=== PATIENT | male | born 1995 | race Caucasian/White ===

== ENCOUNTER → 2021-12-16 | Outpatient (CLI) | payer OTHER | LOC: M PLAIMG 10:32 | PROVIDERS: ATTEND Physician Assistant | DX: Z18.10 Retained metal fragments, unspecified (principal) ==

== ENCOUNTER → 2021-12-16 | Outpatient (CLI) | payer OTHER | LOC: M PLAIMG 10:26 | PROVIDERS: ATTEND Physician Assistant | DX: M25.551 Pain in right hip (principal); M25.561 Pain in right knee ==

== ENCOUNTER → 2021-12-21 | Outpatient (CLI) | payer OTHER | LOC: M PLAIMG 12:26 | PROVIDERS: ATTEND Physician Assistant | DX: M25.521 Pain in right elbow (principal); M25.522 Pain in left elbow ==

== ENCOUNTER → 2023-04-07 | Outpatient (CLI) | payer OTHER ==
[~2023-04-07] MED LIST: PROHANCE 279.3MG/ML 15ML VIAL As Ordered ONE; PROHANCE 279.3MG/ML 5ML VIAL As Ordered ONE
== END ==
LOC: M RAD 09:11
PROVIDERS: ATTEND Physical Medicine & Rehabilitation
DX: M47.897 Other spondylosis, lumbosacral region (principal); M48.061 Spinal stenosis, lumbar region without neurogenic claudication
CPT/HCPCS: 72158; A9576

== ENCOUNTER → 2024-10-14 | Outpatient (REF) | LOC: M SLEEP HO 10:00 | PROVIDERS: ATTEND Physician Assistant | DX: G47.33 Obstructive sleep apnea (adult) (pediatric) (principal) ==